=== PATIENT | female | born 1995 | race Caucasian/White ===

== ENCOUNTER 2017-06-28 10:09 | Emergency (ER) | payer MEDICAID ==
[2017-06-28] MEDS: KETOROLAC 60 MG INJ IM (12:11)
[2017-06-28 12:22] LABS: ADD UMIC YES; UR AMORPHOUS CRYSTAL FEW /HPF (NONE SEEN); UR ASCORBIC ACID NEGATIVE (NEGATIVE); UR BACTERIA FEW /HPF (NONE SEEN); UR BILIRUBIN (Dip) NEGATIVE (NEGATIVE); UR BLOOD (Dip) 1+ mg/dL (NEGATIVE); UR CLARITY CLOUDY (CLEAR); UR COLOR RED (YELLOW); UR GLUCOSE (Dip) NEGATIVE (NEGATIVE); UR KETONES (Dip) NEGATIVE (NEGATIVE); UR LEUKOCYTE ESTERASE (Dip) 1+ Leu/ul (NEGATIVE); UR MUCUS FEW /HPF (NONE SEEN); UR NITRITE (Dip) NEGATIVE (NEGATIVE); UR RBC 3 /HPF (0-5); UR SPECIFIC GRAVITY (Dip) 1.018 (1.003-1.030); UR SQUAMOUS EPITHELIAL CELL MODERATE /HPF (FEW); UR TOTAL PROTEIN (Dip) NEGATIVE (NEGATIVE); UR UROBILINOGEN (Dip) NEGATIVE (NEGATIVE); UR WBC 10 /HPF (0-5)
== END 2017-06-28 14:15 | disposition home or self-care (01) ==
LOC: FTE 10:09
DX: N39.0 Urinary tract infection, site not specified (principal); R05 Cough
CPT/HCPCS: 71046; 72100; 81001; 81025; 96372; 99284-25

== ENCOUNTER 2017-07-01 09:46 | Inpatient (IN) | payer MEDICAID ==
[~2017-07-01 09:46] MED LIST: ACETAMINOPHEN 1000 MG/100 ML IVPB
[2017-07-01] MEDS ORDERED: morphine 4 MG/ML VIAL IV (10:24)
[2017-07-01] MEDS: SOD CHLORIDE 0.9% 1,000 ML IV ×5 (11:35→19:21)
[2017-07-01] MEDS: ONDANSETRON 4 MG INJ IV ×4 (11:38→22:52)
[2017-07-01] MEDS: HYDROmorphONE 1 MG/5 ML IV SYRINGE IV ×4 (11:38→19:22)
[2017-07-01 11:42] LABS: ADD MAN DIFF? NO
[2017-07-01] MEDS: PIPER-TAZO 3.375 GM IV (PMX) 100 ML IVPB ×2 (11:45→16:41)
[2017-07-01 11:47] LABS: WHITE BLOOD COUNT 10.4 10^3/ul (4.8-10.8)
[2017-07-01 11:47] LABS: ABNORMAL IP MESSAGE 1; BASOPHILS % 0.4 % (0.0-2.0); EOSINOPHILS % 0.2 % (0.0-7.0); HEMATOCRIT 29.3 % (37.0-47.0); HEMOGLOBIN 8.4 g/dl (12.0-16.0); LYMPHOCYTES # 1.6 10^3/ul (0.8-2.9); LYMPHOCYTES % 15.1 % (15.0-51.0); MEAN CORPUSCULAR HEMOGLOBIN 18.9 pg (29.0-33.0); MEAN CORPUSCULAR HGB CONC 28.7 g/dl (32.0-37.0); MEAN CORPUSCULAR VOLUME 65.8 fl (82.0-101.0); MONOCYTE # 0.6 10^3/ul (0.3-0.9); MONOCYTES % 5.4 % (0.0-11.0); NEUTROPHIL # 8.2 10^3/ul (1.6-7.5); NEUTROPHILS % 78.4 % (39.0-77.0); PLATELET COUNT 383 10^3/UL (140-415); RED BLOOD COUNT 4.45 10^6/ul (4.20-5.40); RED CELL DISTRIBUTION WIDTH 17.5 % (11.5-14.5)
[2017-07-01 11:48] LABS: POSITIVE DIFF @See below
[2017-07-01 11:49] LABS: ADD UMIC YES; UR ASCORBIC ACID NEGATIVE (NEGATIVE); UR BACTERIA FEW /HPF (NONE SEEN); UR BILIRUBIN (Dip) NEGATIVE (NEGATIVE); UR BLOOD (Dip) NEGATIVE (NEGATIVE); UR CLARITY CLOUDY (CLEAR); UR COLOR YELLOW (YELLOW); UR GLUCOSE (Dip) NEGATIVE (NEGATIVE); UR KETONES (Dip) NEGATIVE (NEGATIVE); UR LEUKOCYTE ESTERASE (Dip) TRACE Leu/ul (NEGATIVE); UR NITRITE (Dip) NEGATIVE (NEGATIVE); UR RBC 1 /HPF (0-5); UR SQUAMOUS EPITHELIAL CELL FEW /HPF (FEW); UR TOTAL PROTEIN (Dip) NEGATIVE (NEGATIVE); UR UROBILINOGEN (Dip) NEGATIVE (NEGATIVE); UR WBC 2 /HPF (0-5)
[2017-07-01 12:07] LABS: ALANINE AMINOTRANSFERASE 11 IU/L (13-69); ALBUMIN 4.4 g/dl (3.3-4.9); ALBUMIN/GLOBULIN RATIO 1.18; ALKALINE PHOSPHATASE 88 IU/L (42-121); ANION GAP 17 (8-16); ASPARTATE AMINO TRANSFERASE 15 IU/L (15-46); BILIRUBIN,INDIRECT 0.4 mg/dl (0-1.1); BILIRUBIN,TOTAL 0.4 mg/dl (0.2-1.3); BLOOD UREA NITROGEN 8 mg/dl (7-20); CARBON DIOXIDE 25 mmol/L (21-31); CHLORIDE 105 mmol/L (97-110); CREATININE 0.63 mg/dl (0.44-1.00); GLUCOSE 98 mg/dl (70-220); LIPASE 90 U/L (23-300); POTASSIUM 3.9 mmol/L (3.5-5.1); SODIUM 143 mmol/L (135-144); TOTAL PROTEIN 8.1 g/dl (6.1-8.1)
[2017-07-01] MEDS: METOCLOPRAMIDE 10 MG INJ IV (12:35)
[2017-07-01 13:28] LABS: INR 1.13; PROTIME 14.7 Sec (11.9-14.9); PT RATIO 1.1
[2017-07-01 13:29] LABS: PARTIAL THROMBOPLASTIN TIME 32.9 Sec (25.0-35.0)
[2017-07-01] MEDS ORDERED: ROPIVACAINE 0.2% 20 ML VIAL (20:14)
[2017-07-01] MEDS ORDERED: ROCURONIUM 50 MG INJ (20:14)
[2017-07-01] MEDS ORDERED: MIDAZOLAM 1 MG/ML 2 ML INJ (20:14)
[2017-07-01] MEDS ORDERED: PROPOFOL 20 ML (20:14)
[2017-07-01] MEDS ORDERED: EPHEDrine SULFATE 50 MG/5 ML SYG IV (20:30)
[2017-07-01] MEDS ORDERED: METOCLOPRAMIDE 10 MG INJ IV (20:30)
[2017-07-01] MEDS ORDERED: DIPHENHYDRAMINE 50 MG INJ IV (20:30)
[2017-07-01] MEDS ORDERED: FENTAnyl 50 MCG/ML VIAL IV ×2 (20:30)
[2017-07-01] MEDS ORDERED: HYDROmorphONE (0.2 MG/ML) 10ML SYG IV ×2 (20:30)
[2017-07-01] MEDS ORDERED: OXYCODONE/ACETAMINOPHEN (5/325) TAB PO ×2 (20:30)
[2017-07-01] MEDS ORDERED: MEPERIDINE 25 MG INJ IV (20:30)
[2017-07-01] MEDS ORDERED: BUPIVACAINE 0.25%/EPI (MDV) 50 ML VIAL INJ (21:03)
[2017-07-01] MEDS ORDERED: ROPIVACAINE 0.5 % 30 ML VIAL (21:33)
[2017-07-01] MEDS ORDERED: PIPER-TAZO 3.375 GM IV (PMX) 100 ML (21:37)
[2017-07-01] MEDS ORDERED: PHENYLephrine (100 MCG/ML) 5ML SYG (21:40)
[2017-07-01] MEDS ORDERED: METOCLOPRAMIDE 10 MG INJ (21:59)
[2017-07-01] MEDS ORDERED: ONDANSETRON 4 MG INJ (21:59)
[2017-07-01] MEDS ORDERED: SUGAMMADEX SODIUM 200 MG/2 ML VIAL IV (22:00)
[2017-07-01] MEDS ORDERED: KETOROLAC 30 MG INJ (22:00)
[2017-07-01] MEDS ORDERED: DEXAMETHASONE 4 MG/ML 1 ML INJ (22:00)
[2017-07-01] MEDS ORDERED: ONDANSETRON 4 MG INJ IV (22:30)
[2017-07-01] MEDS ORDERED: ACETAMINOPHEN 325 MG TAB PO (22:30)
[2017-07-01] MEDS: HYDROmorphONE (0.2 MG/ML) 10ML SYG IV (22:52)
[2017-07-01] MEDS: FENTAnyl 50 MCG/ML VIAL IV (22:53)
[2017-07-01] MEDS: D5-NS + KCL 20 MEQ 1,000 ML IV (23:47)
[2017-07-02] MEDS: HYDROmorphONE 0.5 MG/0.5 ML SYG IV (03:52)
[2017-07-02 05:10] LABS: WHITE BLOOD COUNT 7.7 10^3/ul (4.8-10.8)
[2017-07-02 05:10] LABS: ABNORMAL IP MESSAGE 1; ADD MAN DIFF? NO; BASOPHILS % 0.4 % (0.0-2.0); HEMATOCRIT 29.2 % (37.0-47.0); LYMPHOCYTES # 0.8 10^3/ul (0.8-2.9); LYMPHOCYTES % 10.2 % (15.0-51.0); MEAN CORPUSCULAR HEMOGLOBIN 18.8 pg (29.0-33.0); MEAN CORPUSCULAR HGB CONC 27.4 g/dl (32.0-37.0); MEAN CORPUSCULAR VOLUME 68.5 fl (82.0-101.0); MEAN PLATELET VOLUME 10.7 fl (7.4-10.4); MONOCYTE # 0.1 10^3/ul (0.3-0.9); MONOCYTES % 1.3 % (0.0-11.0); NEUTROPHIL # 6.8 10^3/ul (1.6-7.5); NEUTROPHILS % 87.5 % (39.0-77.0); PLATELET COUNT 346 10^3/UL (140-415); RED BLOOD COUNT 4.26 10^6/ul (4.20-5.40); RED CELL DISTRIBUTION WIDTH 17.2 % (11.5-14.5)
[2017-07-02 05:40] LABS: POSITIVE DIFF @See below
[2017-07-02] MEDS: KETOROLAC 30 MG INJ IV ×3 (06:07→17:40)
[2017-07-02] MEDS: ENOXAPARIN 40 MG/0.4 ML SYG SC (06:09)
[2017-07-02 06:14] LABS: IRON 25 ug/dl (35-150)
[2017-07-02 06:23] LABS: % IRON SATURATION 6 % SAT (22-52); TOTAL IRON BINDING CAPACITY 419 ug/dl (241-421)
[2017-07-02] MEDS: FAMOTIDINE 20 MG INJ IV (08:47)
[2017-07-02 11:59] LABS: FERRITIN 7.6 ng/ml (6.2-137.0)
[2017-07-02] MEDS: HYDROCODONE/APAP (5/325) TAB PO (12:05)
[2017-07-02] MEDS: FERROUS SULFATE (EC) 325 MG TAB PO ×2 (12:06→16:26)
== END 2017-07-02 18:45 | disposition home or self-care (01) | DRG 343 ==
LOC: FTE 09:46 → REC 18:48 → MS1 23:27
PROC: 0DTJ4ZZ Resection of Appendix, Percutaneous Endoscopic Approach (ICD-10-PCS; principal; 2017-07-01 20:30)
DX: K35.80 Unspecified acute appendicitis (principal); E66.9 Obesity, unspecified; Z68.38 Body mass index [BMI] 38.0-38.9, adult
CPT/HCPCS: 72195; 74018; 76705; 80053; 81001; 81025; 82728; 83540; 83690; 85025; 85610; 85730; 87040; 88304; 96374; 96375; 96376; 99291-25

== ENCOUNTER 2018-10-01 08:54 | Emergency (ER) | payer OTHER, MEDICAID | END 2018-10-01 09:54 | disposition home or self-care (01) | LOC: FTE 09:54 | DX: H10.32 Unspecified acute conjunctivitis, left eye (principal) | CPT/HCPCS: 99283; Z7502 ==